=== PATIENT | male | born 1955 | race Caucasian/White ===

== ENCOUNTER 2016-10-02 09:05 | Emergency (ER) ==
--- NOTE | 2016-10-02 09:41 | ED EKG INTERP ---
EKG Interpretation - EKG Time of EKG reading by physician:: 09:11 EKG Read and Signed by:: Scout Polanco EKG Interpretation (*Must complete 3 of following elements*): Normal Rate: 85 Rhythm: normal sinus rhythm Comments: normal ECG Attestation - Scribe Verification/Attestation Scribe:: Jocelin Posada Acting as Scribe for:: Scout Polanco Scribe documention review:: This chart was documented by a scribe and accurately reflects the service the provider performed and the decisions made by the provider.
[2016-10-02] MEDS ORDERED: PRINIVIL PO ONE (09:55)
[2016-10-02] MEDS ORDERED: ASPIRIN PO STA (09:55)
[2016-10-02] MEDS ORDERED: CARDIZEM IV ONE (09:55)
[2016-10-02] MEDS ORDERED: XANAX PO ONE (09:55)
[2016-10-02 10:09] LABS: MANUAL DIFF NEEDED? NO
[2016-10-02 10:12] LABS: BASO% 0.7 % (0.0-0.8); EOS# 0.22 X1000 (0.0-0.7); EOS% 4.8 % (0.0-10.0); HEMATOCRIT 38.3 % (42.0-52.0); HEMOGLOBIN 12.6 g/dL (14.0-18.0); IMM GRAN% 4.4 % (0.0-0.5); LYMPH# 0.69 X1000 (1.2-3.4); LYMPH% 15.1 % (20.5-51.1); MCH 34.2 PG (27-31); MCHC 32.9 g/dL (33-37); MCV 104.1 FL (81-99); MONO# 0.67 X1000 (0.11-0.59); MONO% 14.6 % (1.7-9.3); MPV 10.8 FL (7.4-10.4); NEUT% 60.4 % (42.2-75.2); PLT 138 X1000 (130-400); RBC 3.68 XMIL (4.7-6.1)
[2016-10-02 10:22] LABS: INR 0.99; PROTIME 10.5 Seconds (9.2-11.7); PTT 21.5 Seconds (22.0-36.0)
[2016-10-02 10:31] LABS: ALLEN TEST YES; BE 0.3 mmoll (-3.0-3.0); BLOOD TYPE ARTERIAL; DRAW SITE R RADIAL; METHB 0.7 % (0.0-1.5); O2(CT) 16.4 mL/dL (15.0-23.0); PCO2(98.6) 38 mmHg (35-45); PO2(98.6) 100 mmHg (60-100); SAMPLE BLOOD; SAO2 95.7 % (95.0-100.0); THB 12.2 g/dL (11.5-17.4); pH(98.6) 7.42 (7.35-7.45)
[2016-10-02 10:32] LABS: MODALITY ROOM AIR
--- NOTE | 2016-10-02 10:50 | PROVIDER DOCUMENTATION ---
HPI-Cardiac General - General Chief Complaint: Palpitations Stated Complaint: "Feels like his heart is racing" Time Seen by Provider: 10/02/16 09:54 Source: patient Allergies/Adverse Reactions: Patient Allergies Allergy/AdvReac Type Severity Reaction Status Date / Time No Known Allergies Allergy Verified 10/02/16 09:27 Home Medications: Doxycycline [Vibramycin] 100 mg PO BID 05/05/15 - History of Present Illness-Cardiac Nature of Presenting Problem: Pt is 61 y/o M presents to the ED with palpitations. Pt states having a prior hx of palpitations. Pt states he has a cup of coffee this morning and shortly after the palpitations started. Pt states on the way to the hospital the palpitations stopped. Pt denies F. Pt states he has cancer and is on chemo for the cancer. Location: reports: central Quality of Pain: reports: throbbing Severity in ED: mild Onset/Duration: this morning Timing: gone now Context/Activities at Onset: reports: moderate activity Modifying Factors: improves with: nothing Palpitation Quality: fast/pounding heart beat History of arrythmia: reports: none Recent use of:: reports: caffeine Aspirin Treatment Today: reports: 325 mg x 1, provided by ED Prior Chest Pain/Cardiac Workup: reports: other (palpitations) Associated Symptoms: reports: fatigue, shortness of breath. denies: abdominal pain, back pain, diaphoresis, dizziness, edema, fever/chills, headache, heartburn, nausea, rash, swelling/lump in chest, syncope, vomiting, weakness Similar Symptoms Previously?: Yes Recently Seen Here or By Another Healthcare Provider: No Review of Systems - Adult - REVIEW OF SYSTEMS - ADULT Constitutional: reports: purnima. denies: chills, fever Eyes: denies: blurred vision, double vision Ears, Nose, Mouth & Throat: denies: ear pain, nose pain, throat pain Cardiovascular: reports: palpitations. denies: chest pain, heart murmur, irregular heart rate Respiratory: denies: cough, shortness of breath, wheezing Gastrointestinal: denies: abdominal pain, diarrhea, nausea, vomiting Genitourinary: denies: dysuria, hematuria Musculoskeletal: denies: bone pain, joint pain, neck pain Integumentary: denies: hives, itching Neurological: denies: dizziness/vertigo, headache/migraines Psychiatric: reports: no symptoms reported Endocrine: reports: no symptoms reported Hematologic/Lymphatic: reports: no symptoms reported Allergic/Immunologic: reports: no symptoms reported All Other Systems: Reviewed and Negative Past History - Adult - PAST MEDICAL HISTORY-ADULT Review of Records: reports: Nursing Assessment Review, Medications Reviewed, Social history reviewed & non-contributory. Major Childhood Illnesses: reports: denies history Cardiovascular: reports: denies history Respiratory: reports: asthma Gastrointestinal: reports: denies history Obstetrical/Gynecological: reports: denies history Genitourinary: reports: kidney stones Musculoskeletal: reports: denies history Neurological: reports: denies history Endocrine/Immune: reports: denies history Other Conditions: reports: denies history - FAMILY HISTORY Family History: reviewed, not pertinent - SOCIAL HISTORY Smoking: quit greater than 1 year, cigarettes Provider spent 3-5 mins advising pt. on dangers of tobacco.: Discussed manners to quit use, and f/u contacts for add'l counseling. Substance Use: alcohol Alcohol Use Frequency: occasionally Number of drinks per typical drinking period:: 2 drinks Living Situation: family Physical Exam-General - PHYSICAL EXAM-ADULT Initial Vital Signs Reviewed: Yes - CONSTITUTIONAL General Appearance: appears well, alert, no apparent distress - EYES Eyes: PERRL/EOMI, pink conjunctivae - HEAD, EARS, NOSE, MOUTH & THROAT HENMT: normocephalic/atraumatic, moist mucous membranes, normal ENT inspection - NECK Neck: non-tender, full range of motion, supple, normal inspection - RESPIRATORY Respiratory: chest non-tender, lungs clear, normal breath sounds - CARDIOVASCULAR Cardiovascular: normal peripheral pulses, regular rate, rhythm, no edema - GASTROINTESTINAL (ABDOMEN) Abdominal Exam: normal bowel sounds, non tender, soft - LYMPHATIC Lymphatic: no adenopathy - MUSCULOSKELETAL Back Exam: normal inspection, no CVA tenderness, no vertebral tenderness Extremity: normal range of motion, non-tender, normal gait - SKIN Integumentary: normal color, normal turgor, warm/dry - NEUROLOGIC Neurologic: reliability technologist II-XII nml as tested, grossly normal, no motor/sensory deficits - PSYCHIATRIC Psych/Mental Status: normal mood/affect, normal thought content, normal thought process, oriented x 3 Progress - PLAN OF CARE/RESULTS Progress/Plan/Lab Results: Laboratory Tests 10/02/16 10/02/16 10/02/16 09:09 09:09 10:25 WBC 4.58 L RBC 3.68 L Hgb 12.6 L Hct 38.3 L MCV 104.1 H MCH 34.2 H MCHC 32.9 L RDW Std Deviation 14.4 Plt Count 138 MPV 10.8 H Immature Gran % (Auto) 4.4 H Neut % (Auto) 60.4 Lymph % (Auto) 15.1 L Calvert % (Auto) 14.6 H Eos % (Auto) 4.8 Baso % (Auto) 0.7 Immature Gran # (Auto) 0.20 H Neut # (Auto) 2.77 Lymph # (Auto) 0.69 L Calvert # (Auto) 0.67 H Eos # (Auto) 0.22 Baso # (Auto) 0.03 PT 10.5 INR 0.99 PTT (Actin FS) 21.5 L Specimen Type ARTERIAL Sample Site R RADIAL pH 7.42 pCO2 38 pO2 100 HCO3 25.1 Base Excess 0.3 Oxyhemoglobin 95.0 ABG O2 Sat (Calculated) 16.4 ABG O2 Saturation 95.7 ABG Carboxyhemoglobin 0.00 L ABG Methemoglobin 0.7 Clay Test YES A-a O2 Difference 2.0 Total Hemoglobin 12.2 Lactate 1.00 Blood Gas Modality ROOM AIR FiO2 % 21.0 Orders Category Date Time Status Cardiac Monitoring DIRECTED Care 10/02/16 09:55 Active Finger Stick Blood Sugar (ED) DIRECTED Care 10/02/16 09:57 Active Orthostatic Vital Signs NOW Care 10/02/16 09:57 Active Saline Loc NOW Care 10/02/16 09:55 Active CHEST-2 VIEWS [RAD] Stat Exams 10/02/16 09:55 Taken ABG [RESP] Routine Lab 10/02/16 10:25 Completed CBC WITH ELECTRONIC DIFF [HEME] Stat Lab 10/02/16 09:09 Completed CK PROFILE [SP CHEM] Stat Lab 10/02/16 09:09 Received COMPREHENSIVE METABOLIC PANEL [CHEM] Stat Lab 10/02/16 09:09 Received D-DIMER [CHEM] Stat Lab 10/02/16 09:09 Received MAGNESIUM [CHEM] Stat Lab 10/02/16 09:09 Received PRO B-NATRIURETIC PEPTIDE Stat Lab 10/02/16 09:09 Received PROTIME WITH INR [COAG] Stat Lab 10/02/16 09:09 Completed PTT [COAG] Stat Lab 10/02/16 09:09 Completed TROPONIN T Stat Lab 10/02/16 09:09 Received TSH Stat Lab 10/02/16 09:09 Received TYPE & SCREEN [BBK] Stat Lab 10/02/16 10:15 Received Alprazolam [Xanax] Med 10/02/16 09:55 Discontinued 1 mg PO NOW ONE Aspirin Med 10/02/16 09:55 Discontinued 325 mg PO STAT STA Diltiazem [Cardizem] Med 10/02/16 09:55 Discontinued 10 mg IV NOW ONE LISINOpril [Prinivil] Med 10/02/16 09:55 Discontinued 20 mg PO NOW ONE EKG [EKG] Stat Ther 10/02/16 09:06 Ordered EKG [EKG] Stat Ther 10/02/16 09:55 Ordered Vital Signs - 24 hr 10/02/16 09:17 Temperature 98.2 F Pulse Rate 85 Respiratory 17 Rate Blood Pressure 178/103 O2 Sat by Pulse 98 Oximetry Laboratory Tests 10/02/16 10/02/16 10/02/16 09:09 09:09 09:09 WBC 4.58 L RBC 3.68 L Hgb 12.6 L Hct 38.3 L MCV 104.1 H MCH 34.2 H MCHC 32.9 L RDW Std Deviation 14.4 Plt Count 138 MPV 10.8 H Immature Gran % (Auto) 4.4 H Neut % (Auto) 60.4 Lymph % (Auto) 15.1 L Calvert % (Auto) 14.6 H Eos % (Auto) 4.8 Baso % (Auto) 0.7 Immature Gran # (Auto) 0.20 H Neut # (Auto) 2.77 Lymph # (Auto) 0.69 L Calvert # (Auto) 0.67 H Eos # (Auto) 0.22 Baso # (Auto) 0.03 PT INR PTT (Actin FS) D-Dimer Specimen Type Sample Site pH pCO2 pO2 HCO3 Base Excess Oxyhemoglobin ABG O2 Sat (Calculated) ABG O2 Saturation ABG Carboxyhemoglobin ABG Methemoglobin Clay Test A-a O2 Difference Total Hemoglobin Lactate Blood Gas Modality FiO2 % Sodium 143 Potassium 4.5 Chloride 105 Carbon Dioxide 25 Anion Gap 13 BUN 16 Creatinine 0.9 Estimated GFR/1.73 m2 > 60 BUN/Creatinine Ratio 18 Glucose 104 Calculated Osmolality 286 Calcium 9.9 Magnesium 1.9 Total Bilirubin 0.47 AST 29 ALT 34 Alkaline Phosphatase 133 H Creatine Kinase 79 Troponin T [id number]-Rhpqcblqxtr Pept Total Protein 6.3 Albumin 3.9 Globulin 2.4 Albumin/Globulin Ratio 1.6 TSH 2.94 Blood Type Antibody Screen 10/02/16 10/02/16 10/02/16 09:09 09:09 09:09 WBC RBC Hgb Hct MCV MCH MCHC RDW Std Deviation Plt Count MPV Immature Gran % (Auto) Neut % (Auto) Lymph % (Auto) Calvert % (Auto) Eos % (Auto) Baso % (Auto) Immature Gran # (Auto) Neut # (Auto) Lymph # (Auto) Calvert # (Auto) Eos # (Auto) Baso # (Auto) PT 10.5 INR 0.99 PTT (Actin FS) 21.5 L D-Dimer 0.45 Specimen Type Sample Site pH pCO2 pO2 HCO3 Base Excess Oxyhemoglobin ABG O2 Sat (Calculated) ABG O2 Saturation ABG Carboxyhemoglobin ABG Methemoglobin Clay Test A-a O2 Difference Total Hemoglobin Lactate Blood Gas Modality FiO2 % Sodium Potassium Chloride Carbon Dioxide Anion Gap BUN Creatinine Estimated GFR/1.73 m2 BUN/Creatinine Ratio Glucose Calculated Osmolality Calcium Magnesium Total Bilirubin AST ALT Alkaline Phosphatase Creatine Kinase Troponin T [id number] Pept 39 Total Protein Albumin Globulin Albumin/Globulin Ratio TSH Blood Type Antibody Screen 10/02/16 10/02/16 10/02/16 09:09 10:15 10:25 WBC RBC Hgb Hct MCV MCH MCHC RDW Std Deviation Plt Count MPV Immature Gran % (Auto) Neut % (Auto) Lymph % (Auto) Calvert % (Auto) Eos % (Auto) Baso % (Auto) Immature Gran # (Auto) Neut # (Auto) Lymph # (Auto) Calvert # (Auto) Eos # (Auto) Baso # (Auto) PT INR PTT (Actin FS) D-Dimer Specimen Type ARTERIAL Sample Site R RADIAL pH 7.42 pCO2 38 pO2 100 HCO3 25.1 Base Excess 0.3 Oxyhemoglobin 95.0 ABG O2 Sat (Calculated) 16.4 ABG O2 Saturation 95.7 ABG Carboxyhemoglobin 0.00 L ABG Methemoglobin 0.7 Clay Test YES A-a O2 Difference 2.0 Total Hemoglobin 12.2 Lactate 1.00 Blood Gas Modality ROOM AIR FiO2 % 21.0 Sodium Potassium Chloride Carbon Dioxide Anion Gap BUN Creatinine Estimated GFR/1.73 m2 BUN/Creatinine Ratio Glucose Calculated Osmolality Calcium Magnesium Total Bilirubin AST ALT Alkaline Phosphatase Creatine Kinase Troponin T < 0.010 Bxp-B-Yiupeknaera Pept Total Protein Albumin Globulin Albumin/Globulin Ratio TSH Blood Type O POSITIVE Antibody Screen NEGATIVE - EKG 1 Time of EKG reading by physician:: 12:57 EKG Read and Signed by:: Scout Polanco EKG Interpretation (*Must complete 3 of following elements*): Abnormal Rate: 72 Rhythm: normal sinus rhythm Comments: nonspecific T wave abnormality - XRAY 1 XRAY: Bilateral XRAY Study: Chest Impression: Normal XRAY Interpretation: NAD - CONSULTS/PCP/HOSPITALIST Notification #1 *Consult/PCP/Hospitalist*: Dr. Cabezas Time Discussed: 11:46 (Dr. Cabezas states he will see PT in ED ) Reason/Comments: Dr. Polanco consults with Dr. Cabezas about Pt Consult Disposition: Will see in ED #2 Consult: Dr. Cabezas Time Discussed: 13:39 (Dr. Cabezas states will order an echo and determine admit based on results ) Reason/Comments: Dr. Polanco consults with Dr. Cabezas about Pt Consult Disposition: other Departure - Departure Time of Disposition Order: 11:46 DIAGNOSIS: Palpitations Chest pain Qualifiers: Chest pain type: unspecified Qualified Code(s): R07.9 - Chest pain, unspecified Disposition: HOME 01 Certified Medical Emergency: Emergent Condition: Stable Additional Instructions: ED Follow Up Instructions: You have been treated by a care provider in the Emergency Department. These instructions are being provided to you so you can have an understanding of how to care for yourself upon discharge. Upon discharge from the Emergency Department, you are responsible for making arrangements for follow-up care by a physician of your choice. Take all prescribed medications as directed. Return to the Emergency Department immediately for any new or worsening symptoms. You may call the Physician Referral phone number at [phone] to obtain a list of Physicians who are taking new patients. Referrals: Yo Cabezas MD [STAFF PHYSICIAN] - (Follow up at [facility] in one month. ) Willie Calles MD [Primary Care Provider] - Attestation - Scribe Verification/Attestation Scribe:: Jocelin Posada Acting as Scribe for:: Scout Polanco Scribe documention review:: This chart was documented by a scribe and accurately reflects the service the provider performed and the decisions made by the provider.
[2016-10-02 11:08] LABS: AGAP 13; ALBUMIN 3.9 g/dL (3.5-5.0); ALKALINE PHOSPHATASE 133 U/L (32-122); BUN 16 mg/dL (8-22); CALCIUM 9.9 mg/dL (8.8-10.2); CHLORIDE 105 mmol/L (98-107); CK PROFILE 79 U/L (24-204); COSMO 286; GOT 29 U/L (10-34); GPT 34 U/L (10-44); MAGNESIUM 1.9 mg/dL (1.5-2.7); POTASSIUM 4.5 mmol/L (3.5-5.1); SODIUM 143 mmol/L (136-145); TCO2 25 mmol/L (25-35); TOTAL BILIRUBIN 0.47 mg/dL (0.20-1.00); TOTAL PROTEIN 6.3 g/dL (6.3-8.3)
--- NOTE | 2016-10-02 11:11 | Diag Imaging Result Document ---
PROCEDURE NAME: CHEST-2 VIEWS - 10/02/2016 2 VIEWS OF THE CHEST: FINDINGS: There is a Port-A-Cath on the right. There is some blunting of the lateral costophrenic angle on the right which was not present on 04/11/2013. The lungs are much better expanded on the current study however. Otherwise, there is no evidence of acute pulmonary disease. IMPRESSION: 1. Possible fibrosis in the right costophrenic angle. 2. Otherwise, no evidence of acute disease.
--- NOTE | 2016-10-02 13:39 | CONSULTATION ---
DATE OF CONSULTATION: 10/02/2016 INDICATION: Palpitations. HISTORY OF PRESENT ILLNESS: Mr. Gross is a 61-year-old white male, who presented for evaluation of palpitations that began early in the morning around 3 a.m. They woke him from sleep and persisted for around 6 hours. He reports that they were present in the emergency room when he was seen. He did not have any other associated symptoms. No lightheadedness, and he had no issues with any chest pain or nausea or vomiting. The patient adamantly denies any chest pain. He has no orthopnea. He reports compliance with his medications. He is on Avastin for colon cancer and reports that he was placed on Cozaar recently due to some proteinuria that was present. He is not aware of any issues with his recent chemotherapy with the last dose being this past Friday. He has not had any episodes of nausea, vomiting or diarrhea. PAST MEDICAL HISTORY: 1. Significant for colon cancer currently under chemotherapy per Dr. Bill. He has liver mets; apparently he has been living with colon cancer for around 4 years now. 2. Hypertension. 3. History of palpitations. SOCIAL HISTORY: He has no current alcohol use. FAMILY HISTORY: Significant for hypertension. REVIEW OF SYSTEMS: A 10 system review of systems is negative, except for those mentioned in HPI. PHYSICAL EXAMINATION: Vital Signs: He is afebrile. His heart rates in the 70s to 80s. His systolic blood pressures in the 150s to 170s. General: Generally, no acute distress. HEENT: Oropharynx is moist. Normal dentition. His eye examination shows pink conjunctivae, white sclerae. Neck: Examination shows no obvious thyromegaly. Cardiovascular Examination: Regular rate and rhythm. He has no obvious murmurs. No S3. No lower extremity edema. Chest: Exam is clear to auscultation bilaterally. No increased work of breathing. Abdomen: Soft, nontender, nondistended. No obvious organomegaly. Skin Exam: Warm and dry throughout without any rashes. Neurological: Moving all extremities well. Cranial nerves 2-12 are intact without any sensation deficits. Psychiatric: Alert and oriented, pleasant. He has a normal mood and affect. PERTINENT DATA: His chest x-ray shows possible fibrosis, and no evidence of any other acute disease. EKG shows sinus rhythm. No signs of PVCs or PACs. No signs of acute ischemic changes. Reportedly he was having palpitations at the time of this study. White count is 4.6, hematocrit 38.3, platelet count 138. INR 0.99. D-dimer is normal. Sodium 143, potassium 4.5, his BUN is 16, creatinine 0.9. Albumin level is 3.9. Cardiac enzymes negative. ASSESSMENT: Palpitations. PLAN: Patient has not had any specific arrhythmias documented here in the ER. His electrolytes are normal. His TSH is normal and his troponin is normal. His EKG has been unremarkable. The patient may be discharged home. I would recommend adding in metoprolol 25 mg b.i.d. I have ordered a 1 week's DEAN for the patient to receive at home via our office. In addition he will follow up in 1 month.
--- NOTE | 2016-10-02 15:26 | EKG Report ---
Test Performed on : 10/02/2016 09:11:17 AM Test Reason : palpitations Blood Pressure : / mmHG Vent. Rate : 085 BPM Atrial Rate : 085 BPM P-R Int : 144 ms QRS Dur : 078 ms QT Int : 350 ms P-R-T Axes : 066 012 059 degrees QTc Int : 416 ms Normal sinus rhythm. Normal ECG When compared with ECG of 20-SEP-2013 17:08, No significant change was found Unconfirmed Result
--- NOTE | 2016-10-02 15:32 | EKG Report ---
Test Performed on : 10/02/2016 12:57:15 PM Test Reason : CP Blood Pressure : / mmHG Vent. Rate : 072 BPM Atrial Rate : 072 BPM P-R Int : 148 ms QRS Dur : 078 ms QT Int : 368 ms P-R-T Axes : 055 021 069 degrees QTc Int : 402 ms Normal sinus rhythm. Nonspecific T wave abnormality Abnormal ECG When compared with ECG of 02-OCT-2016 09:11, (Unconfirmed) No significant change was found Unconfirmed Result
[2016-10-02 15:47] VITALS: BP 148/87
--- NOTE | 2016-10-02 16:14 | ECHO REPORT ---
ORDER DATE: 10/02/2016 ECHOCARDIOGRAPHIC MEASUREMENTS: 1. Interventricular septum 1.2, left ventricular posterior wall 1.2, diastolic diameter 4.4, left atrium 3.7, aorta 3.8. Normal left ventricular cavity size. Estimated ejection fraction of 65%. 2. Mitral valve was normal. Tricuspid valve was normal. 3. Pulmonic valve was normal. There is mild pulmonary regurgitation. 4. Aortic valve leaflets are trileaflet. 5. Doppler studies revealed mild mitral regurgitation, mild tricuspid regurgitation. Peak velocity across the tricuspid valve was 2.2 m/sec. Peak velocity across the aortic valve less than 2 m/sec. There is no aortic stenosis. There is mild aortic regurgitation. 6. Normal left ventricular cavity size. Estimated ejection fraction of 65%. 7. There is left atrial enlargement.
[2016-10-02] MEDS ORDERED: LOPRESSOR PO SCH (21:00)
== END 2016-10-02 16:41 | disposition home or self-care (01) ==
LOC: EDBD → ED 09:05
DX: R00.2 Palpitations (principal); R07.9 Chest pain, unspecified; R94.31 Abnormal electrocardiogram [ECG] [EKG]; R53.83 Other fatigue; R06.02 Shortness of breath; C18.9 Malignant neoplasm of colon, unspecified; C78.7 Secondary malignant neoplasm of liver and intrahepatic bile duct; I10 Essential (primary) hypertension; Z79.899 Other long term (current) drug therapy; Z87.442 Personal history of urinary calculi; Z87.891 Personal history of nicotine dependence
CPT/HCPCS: 71020; 80053; 82550; 82805; 82948; 83735; 83880; 84443; 84484; 85025; 85379; 85610; 85730; 86850; 86900; 86901; 93005; 93306; 96374